=== PATIENT | female | born 1930 | race Caucasian/White ===

== ENCOUNTER 2017-09-09 18:47 | Emergency (ER) | payer MEDICARE, OTHER ==
[~2017-09-09] VITALS: Ht 165.1 cm; Wt 61.2 kg
[~2017-09-09 18:47] MED LIST: ALLO100T; ATEN50TA80; ATOR10TA; BENA40TA7; TRIAPOW43
[2017-09-09] MEDS ORDERED: ACETAMINOPHEN 325 MG TAB PO ONE (19:00)
[2017-09-09 19:39] LABS: Hematocrit 30.7 % (36.0-46.0); Hemoglobin 9.3 g/dL (12.2-16.2)
[2017-09-09 19:41] LABS: Mean Corpuscular Hemoglobin 22.5 pg (28.0-32.0); Mean Corpuscular Hgb Conc. 30.3 g/dL (32.0-36.0); Mean Corpuscular Volume 74.3 fL (80.0-100.0); Red Blood Cells 4.13 10^6/uL (4.0-5.20); Red Cell Distribution Width 15.6 % (11.8-14.3); White Blood Cell 6.7 10^3/uL (4.4-10.8)
[2017-09-09 19:46] LABS: Platelet Count (auto) 127 10^3/uL (140-450)
[2017-09-09 19:47] LABS: Band Neutrophils % (manual) 0; Basophils % (manual) 0 (0.0-2.0); Blast Cells 0; Eosinophils % (manual) 0 (0-7); Myelocytes % 0; Promyelocytes % 0; Reactive Lymphocytes 0
[2017-09-09 19:56] LABS: Albumin 3.6 g/dL (3.4-5.0); Anion Gap 12 (5-15); BUN/Creatinine Ratio 26.3; Blood Alcohol < 3.0 mg/dL (0-5); Calcium 9.7 mg/dL (8.5-10.1); Carbon Dioxide 20 mmol/L (21-32); Chloride 106 mmol/L (98-107); GFR African American 18 mL/min; GFR Non-African American 15 mL/min; Glucose 85 mg/dL (74-106); Magnesium 2.3 mg/dL (1.6-2.6); Sodium 138 mmol/L (136-145)
[2017-09-09 19:59] LABS: INR 0.99 (0.9-1.15); Partial Thromboplastin Time 23.5 sec (23.78-33.04); Prothrombin Time 10.6 sec (9.27-12.13)
[2017-09-09 20:01] LABS: Lymphocytes % (manual) 23 (10.0-50.0); Metamyelocytes % 2; Monocytes % (manual) 4 (0-12)
[2017-09-09 20:06] LABS: Blood Urea Nitrogen 81 mg/dL (7-18); Potassium 6.4 mmol/L (3.5-5.1)
[2017-09-09 20:10] LABS: Alanine Aminotransferase 36 U/L (13-56); Alkaline Phosphatase 224 U/L (45-117); Aspartate Aminotransferase 33 U/L (15-37); Total Protein 7.2 g/dL (6.4-8.2)
[2017-09-09] MEDS ORDERED: SODIUM POLYSTYRENE SULF 15GM/60ML SUSP PO ONE (21:00)
[2017-09-09] MEDS ORDERED: CALCIUM GLUC 4.65meq/50ml D5AE 50 ML IV ONE (21:00)
[2017-09-09] MEDS ORDERED: SODIUM BICARBONATE 8.4 % INJ 50ML VIAL IV ONE (21:00)
[2017-09-09] MEDS ORDERED: DEXTROSE (50%) 50ML SYRG IV ONE (21:00)
[2017-09-09] MEDS ORDERED: InsuLIN REG 1unit/0.01ml Soln (100units/ml) IV ONE (21:00)
[2017-09-09 22:25] VITALS: BP 185/81
== END 2017-09-09 22:34 | disposition short-term general hospital (02) ==
LOC: EDBD 18:47 → ER 18:47
DX: S02.2XXA Fracture of nasal bones, initial encounter for closed fracture (principal); S06.2X0A Diffuse traumatic brain injury without loss of consciousness, initial encounter; S01.81XA Laceration without foreign body of other part of head, initial encounter; M10.9 Gout, unspecified; E78.5 Hyperlipidemia, unspecified; I50.9 Heart failure, unspecified; E87.5 Hyperkalemia; I11.0 Hypertensive heart disease with heart failure; N28.9 Disorder of kidney and ureter, unspecified; J18.9 Pneumonia, unspecified organism; W01.0XXA Fall on same level from slipping, tripping and stumbling without subsequent striking against object, initial encounter; Y93.89 Activity, other specified; Y99.8 Other external cause status; Y92.89 Other specified places as the place of occurrence of the external cause
CPT/HCPCS: 36415; 70450; 70486; 71045; 80053; 80320; 83735; 83880; 84484; 85007; 85027; 85379; 85610; 85730; 96365; 96375; 99291; J1815; J7042